=== PATIENT | female | born 1985 | race Hispanic/Latino ===

== ENCOUNTER 2018-01-25 03:35 | Emergency (ER) | payer OTHER, SELFPAY ==
[2018-01-25 04:34] LABS: Absolute Monocytes 0.8 K/uL (0.1-1.3); Absolute Neutrophil 7.7 K/uL (1.8-8.0); Basophils % 0.4 % (0-1.3); Eosinophils % 1.2 % (0-4.4); Hematocrit 39.7 % (36.0-45.0); Lymphocytes % 18.6 % (15.3-44.8); MCH 30.6 pg (27.0-35.0); MCV 90.3 fL (80-100); MPV 9.7 fL (7.6-11.3); Monocytes % 7.2 % (3.3-12.3)
[2018-01-25 04:55] LABS: ALT/SGPT 38 U/L (12-78); AST/SGOT 21 U/L (15-37); Albumin 3.7 g/dL (3.4-5.0); Alkaline Phosphatase 76 U/L (45-117); BUN Blood Urea Nitrogen 10 mg/dL (7-18); Bicarbonate 24 mmol/L (21-32); Bilirubin Direct < 0.1 mg/dL (0-0.2); Bilirubin Total 0.2 mg/dL (0.2-1.0); Glucose Level 99 mg/dL (74-106); Lipase 130 U/L (73-393); Potassium 3.6 mmol/L (3.5-5.1); Protein, Total 7.9 g/dL (6.4-8.2); Sodium Level 138 mmol/L (136-145)
[2018-01-25 07:05] LABS: Urine Blood NEGATIVE (NEG); Urine Glucose NEGATIVE (NEG); Urine Protein NEGATIVE (NEG)
[2018-01-25 07:07] LABS: Urine Bacteria 20-50 /HPF (<20); Urine Culture Reflex Order REFLEXED; Urine RBC <5 /HPF (NONE SEEN)
[2018-01-25 07:08] LABS: Urine Mucus 1+ /HPF (NONE SEEN)
--- NOTE | 2018-01-25 09:35 | EDPHYS ---
Physician Documentation [facility] Name: Opal Tempel Age: 32 yrs Sex: Female : 1985 Arrival Date: 01/25/2018 Time: 03:37 Bed 13 Private MD: ED Physician Tate De La Cruz HPI: 01/25 07:00 This 32 yrs old Female presents to ER via Ambulatory with complaints of 7 pm1 WEEKS PREG CRAMPING. 07:00 The patient presents with abdominal pain in the periumbilical area. Onset: The pm1 symptoms/episode began/occurred this morning, at 02:45. The symptoms radiate to both flanks. Associated signs and symptoms: Pertinent negatives: nausea, vomiting, and diarrhea, chest pain, dysuria, fever, headache, shortness of breath. The symptoms are described as crampy. Modifying factors: The symptoms are alleviated by nothing, the symptoms are aggravated by nothing. Severity of pain: in the emergency department the pain On evaluation patient was not having anymore pain. The patient has not experienced similar symptoms in the past. The patient has not recently seen a physician, has an appointment scheduled, [address] Franz. 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 - Social history:: Smoking status: Patient/guardian denies using tobacco. - Ebola Screening: : No symptoms or risks identified at this time. ROS: 09:45 Constitutional: Negative for fever, chills, and weight loss, Eyes: Negative for injury, pm1 pain, redness, and discharge, ENT: Negative for injury, pain, and discharge, Neck: Negative for injury, pain, and swelling, Cardiovascular: Negative for chest pain, palpitations, and edema, Respiratory: Negative for shortness of breath, cough, wheezing, and pleuritic chest pain. 09:45 Back: Negative for injury and pain, : Negative for injury, bleeding, discharge, and swelling, MS/Extremity: Negative for injury and deformity. 09:45 Skin: Negative for injury, rash, and discoloration, Neuro: Negative for headache, weakness, numbness, tingling, and seizure. 09:45 Abdomen/GI: Positive for abdominal pain, nausea, Negative for nausea, vomiting, diarrhea. Exam: 09:45 Constitutional: This is a well developed, well nourished patient who is awake, alert, pm1 and in no acute distress. Head/Face: Normocephalic, atraumatic. Eyes: Pupils equal round and reactive to light, extra-ocular motions intact. Lids and lashes normal. Conjunctiva and sclera are non-icteric and not injected. Cornea within normal limits. Periorbital areas with no swelling, redness, or edema. ENT: Nares patent. No nasal discharge, no septal abnormalities noted. Tympanic membranes are normal and external auditory canals are clear. Oropharynx with no redness, swelling, or masses, exudates, or evidence of obstruction, uvula midline. Mucous membranes moist. Neck: Trachea midline, no thyromegaly or masses palpated, and no cervical lymphadenopathy. Supple, full range of motion without nuchal rigidity, or vertebral point tenderness. No Meningismus. Chest/axilla: Normal chest wall appearance and motion. Nontender with no deformity. No lesions are appreciated. Cardiovascular: Regular rate and rhythm with a normal S1 and S2. No gallops, murmurs, or rubs. Normal PMI, no JVD. No pulse deficits. Respiratory: Lungs have equal breath sounds bilaterally, clear to auscultation and percussion. No rales, rhonchi or wheezes noted. No increased work of breathing, no retractions or nasal flaring. Abdomen/GI: Soft, non-tender, with normal bowel sounds. No distension or tympany. No guarding or rebound. No evidence of tenderness throughout. Skin: Warm, dry with normal turgor. Normal color with no rashes, no lesions, and no evidence of cellulitis. MS/ Extremity: Pulses equal, no cyanosis. Neurovascular intact. Full, normal range of motion. 09:45 Back: pain, that is mild, of the left low back, ROM is normal, normal spinal alignment noted. 09:45 Neuro: Orientation: is normal, Motor: moves all fours. Vital Signs: 03:49 BP 113 / 75; Pulse 99; Resp 20; Temp 98.4(O); Pulse Ox 96% on R/A; Weight 61.23 kg; tl2 Height 5 ft. 3 in. (160.02 cm); Pain 8/10; 04:50 Pulse 88; Resp 17 S; Pulse Ox 100% on R/A; jd3 07:35 BP 96 / 62; Pulse 88; Resp 16; Pulse Ox 100% on R/A; Pain 0/10; em 09:21 BP 102 / 64; Pulse 87; Resp 16; Pulse Ox 99% on R/A; Pain 0/10; em 03:49 Body Mass Index 23.91 (61.23 kg, 160.02 cm) tl2 MDM: 06:05 Patient medically screened. pm1 09:33 ED course: Ultrasound 6 w 3 days IUP with 140 BPM. pm1 09:34 Data reviewed: vital signs. Data interpreted: Pulse oximetry: on room air is 99 %. pm1 Interpretation: normal. Counseling: I had a detailed discussion with the patient and/or guardian regarding: the historical points, exam findings, and any diagnostic results supporting the discharge/admit diagnosis, lab results, radiology results, the need for outpatient follow up, to return to the emergency department if symptoms worsen or persist or if there are any questions or concerns that arise at home. 01/25 04:04 Order name: Basic Metabolic Panel; Complete Time: 06:05 tl2 01/25 04:04 Order name: CBC with Diff; Complete Time: 06:05 tl2 01/25 04:04 Order name: Creatinine for Radiology; Complete Time: 06:05 tl2 01/25 04:04 Order name: Hepatic Function; Complete Time: 06:05 tl2 01/25 04:04 Order name: Lipase; Complete Time: 06:05 tl2 01/25 06:27 Order name: Urine Microscopic Only; Complete Time: 07:20 pm1 01/25 04:04 Order name: IV Saline Lock; Complete Time: 04:04 tl2 01/25 06:30 Order name: Quantitative Hcg; Complete Time: 08:22 pm1 01/25 06:30 Order name: Abo/rh Typing; Complete Time: 08:22 pm1 01/25 06:38 Order name: US Transvaginal Ob pm1 01/25 06:42 Order name: Urine Dipstick--Ancillary (enter results); Complete Time: 07:20 eb 01/25 07:08 Order name: Urine Culture EDND 01/25 04:04 Order name: Labs collected and sent; Complete Time: 04:04 tl2 01/25 04:04 Order name: Urine Dipstick-Ancillary (obtain specimen); Complete Time: 06:26 tl2 01/25 04:04 Order name: Urine Test (obtain specimen); Complete Time: 06:26 tl2 01/25 06:30 Order name: NPO; Complete Time: 06:32 pm1 Administered Medications: 09:52 Drug: Rocephin 1 grams Route: IV; Rate: calculated rate; Site: left antecubital; aj1 09:58 Follow up: Response: No adverse reaction; IV Status: Completed infusion; IV Intake: 10mlem Disposition: 01/25/18 09:34 Discharged to Home. Impression: Unspecified abdominal pain. - Condition is Stable. - Discharge Instructions: Abdominal Pain During , and Urinary Tract Infection. - Prescriptions for Macrobid 100 mg Oral Capsule - take 1 capsule by ORAL route every 12 hours for 10 days; 20 capsule. promethazine 25 mg Oral Tablet - take 1 tablet by ORAL route every 6 hours As needed; 20 tablet. - Medication Reconciliation Form, Thank You Letter form. - Follow up: Emergency Department; When: As needed; Reason: Worsening of condition. Follow up: Private Physician; When: 2 - 3 days; Reason: Recheck today's complaints, Continuance of care, Re-evaluation by your physician. - Problem is new. - Symptoms have improved. Addendum: 01/27/2018 01:07 Co-signature as Attending Physician, Tate De La Cruz MD. p fabian Signatures: Dispatcher [employer] [facility] Kala Randhawa, RN RN aj1 Tate De La Cruz MD MD pkTevin Duvall, ALGORITHM DEVELOPER ALGORITHM DEVELOPER em Kasi Moore, FUNERAL HOME ATTENDANT FUNERAL HOME ATTENDANT pm1 Shayy Garcia, RN RN tl2 Corrections: (The following items were deleted from the chart) 01/25 07:04 06:42 URINE --ANCILLARY+UC.LAB.BRZ ordered. [facility] EDND 09:59 09:34 01/25/2018 09:34 Discharged to Home. Impression: Unspecified abdominal pain. em Condition is Stable. Forms are Medication Reconciliation Form, Thank You Letter, Antibiotic Education, Prescription Opioid Use. Follow up: Emergency Department; When: As needed; Reason: Worsening of condition. Follow up: Private Physician; When: 2 - 3 days; Reason: Recheck today's complaints, Continuance of care, Re-evaluation by your physician. Problem is new. Symptoms have improved. pm1
--- NOTE | 2018-01-25 09:35 | ER ---
Nurse's Notes [facility] Name: Opal Temple Age: 32 yrs Sex: Female : 1985 Arrival Date: 01/25/2018 Time: 03:37 Bed 13 Private MD: Diagnosis: Unspecified abdominal pain Presentation: 01/25 03:47 Presenting complaint: Patient states: I woke up at 0245 with stomach cramping, reports tl2 pain in epigastric area that radiates to back. Reports nausea. Denies any pelvic cramping or vaginal bleeding. Transition of care: patient was not received from another setting of care. Onset of symptoms was January 25, 2018 at 02:45. Risk Assessment: Do you want to hurt yourself or someone else? Patient reports no desire to harm self or others. Initial Sepsis Screen: Does the patient meet any 2 criteria? No. Patient's initial sepsis screen is negative. Does the patient have a suspected source of infection? No. Patient's initial sepsis screen is negative. Care prior to arrival: None. 03:47 Method Of Arrival: Ambulatory tl2 03:47 Acuity: DEANNA 3 tl2 Triage Assessment: 03:49 General: Appears in no apparent distress. uncomfortable, Behavior is calm, cooperative, tl2 appropriate for age. Pain: Complains of pain in epigastric area Pain radiates to left mid back and right mid back Pain currently is 8 out of 10 on a pain scale. Neuro: Level of Consciousness is awake, alert, obeys commands, Oriented to person, place, time, situation. Cardiovascular: Denies chest pain. Respiratory: Airway is patent Respiratory effort is even, unlabored, Respiratory pattern is regular, symmetrical. GI: Abdomen is non-distended, Reports upper abdominal pain, epigastric pain, nausea. : No signs and/or symptoms were reported regarding the genitourinary system. Denies vaginal bleeding. Derm: Skin is pink, warm \T\ dry. 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 - Social history:: Smoking status: Patient/guardian denies using tobacco. - Ebola Screening: : No symptoms or risks identified at this time. Screenin:51 Abuse screen: Denies threats or abuse. Nutritional screening: No deficits noted. tl2 Tuberculosis screening: No symptoms or risk factors identified. Fall Risk None identified. Assessment: 03:49 General: see triage assessment. tl2 05:00 Reassessment: Patient appears in no apparent distress at this time. Patient and/or tl2 family updated on plan of care and expected duration. Pain level reassessed. Patient is alert, oriented x 3, equal unlabored respirations, skin warm/dry/pink. awaiting 0600 provider. No questions or concerns at this time. 06:20 Reassessment: Patient appears in no apparent distress at this time. Patient and/or tl2 family updated on plan of care and expected duration. Pain level reassessed. Patient is alert, oriented x 3, equal unlabored respirations, skin warm/dry/pink. Pt states pain is decreasing. 07:35 Reassessment: Patient appears in no apparent distress at this time. Patient and/or em family updated on plan of care and expected duration. Pain level reassessed. Patient is alert, oriented x 3, equal unlabored respirations, skin warm/dry/pink. Patient denies pain at this time. Patient states feeling better. 08:00 Reassessment: called ultrasound dept., no answer at this time, will try to call again em later. 08:12 Reassessment: Patient appears in no apparent distress at this time. Patient and/or em family updated on plan of care and expected duration. Pain level reassessed. Patient is alert, oriented x 3, equal unlabored respirations, skin warm/dry/pink. pending ultrasound Patient denies pain at this time. 09:02 Reassessment: Patient appears in no apparent distress at this time. Patient and/or em family updated on plan of care and expected duration. Pain level reassessed. Patient is alert, oriented x 3, equal unlabored respirations, skin warm/dry/pink. called ultrasound dept., no answer at this time, will try to call again later. 09:21 Reassessment: Patient appears in no apparent distress at this time. ultrasound at em bedside. Vital Signs: 03:49 BP 113 / 75; Pulse 99; Resp 20; Temp 98.4(O); Pulse Ox 96% on R/A; Weight 61.23 kg; tl2 Height 5 ft. 3 in. (160.02 cm); Pain 8/10; 04:50 Pulse 88; Resp 17 S; Pulse Ox 100% on R/A; jd3 07:35 BP 96 / 62; Pulse 88; Resp 16; Pulse Ox 100% on R/A; Pain 0/10; em 09:21 BP 102 / 64; Pulse 87; Resp 16; Pulse Ox 99% on R/A; Pain 0/10; em 03:49 Body Mass Index 23.91 (61.23 kg, 160.02 cm) tl2 ED Course: 03:37 Patient arrived in ED. al2 03:47 Shayy Garcia, PARAS is Primary Nurse. tl2 03:48 Triage completed. tl2 03:49 Arm band placed on right wrist. tl2 03:51 Patient has correct armband on for positive identification. Placed in gown. Bed in low tl2 position. Call light in reach. Side rails up X 1. 04:04 Inserted saline lock: 22 gauge in left antecubital area, using aseptic technique. Blood tl2 collected. 06:05 Kasi Moore NP is PHCP. pm1 06:05 Tate De La Cruz MD is Attending Physician. pm1 09:44 US Transvaginal Ob In Process Unspecified. EDMS 09:59 No provider procedures requiring assistance completed. IV discontinued, intact, em bleeding controlled, No redness/swelling at site. Pressure dressing applied. Administered Medications: 09:52 Drug: Rocephin 1 grams Route: IV; Rate: calculated rate; Site: left antecubital; aj1 09:58 Follow up: Response: No adverse reaction; IV Status: Completed infusion; IV Intake: 10mlem Intake: 09:58 IV: 10ml; Total: 10ml. em Outcome: 09:34 Discharge ordered by . pm1 09:59 Discharged to home ambulatory. em 09:59 Condition: good 09:59 Discharge instructions given to patient, Instructed on discharge instructions, follow up and referral plans. medication usage, Demonstrated understanding of instructions, follow-up care, medications, Prescriptions given X 2. 09:59 Patient left the ED. em Signatures: Dispatcher [employer] EDDC Kala Randhawa RN RN aj1 Tevin Munoz, BINGO FLOATER BINGO FLOATER em Kasi Moore, ONCOLOGY SOCIAL WORKER ONCOLOGY SOCIAL WORKER pm1 Shayy Garcia, RN RN tl2 Mic Apodaca, RN RN jd3 Lety Arias
[2018-01-25] MEDS ORDERED: CEFTRIAXONE/SWI 1gm 1 GM/10 ML SYR ONE (09:46)
--- NOTE | 2018-01-25 10:47 | RAD REPORT ---
EXAM DESCRIPTION: US - Transvaginal OB - 01/25/2018 9:43 am CLINICAL HISTORY: ABD CRAMPING, COMPARISON: No comparisons FINDINGS: A single gestational sac is seen within the uterus. The shape of the sac is within normal limits for gestational age. Within the sac is a single pole with crown-rump length of 7 mm, cor relating to estimated gestational age of 6 weeks 4 days. Estimated date of delivery is 09/17/2018. Heart rate is 140 BPM. The placenta is not yet developed due to early gestational age. The maternal adnexa and right ovary are within normal limits. Normal Doppler blood flow was demonstra jennifer to the right ovary. The left ovary was obscured by bowel gas. IMPRESSION: Single live early intrauterine gestation with estimated gestational age of 6 weeks 4 day s, FER 09/17/2018. No unusual or unexpected finding.
== END 2018-01-25 09:59 | disposition home or self-care (01) ==
LOC: ER 03:35
DX: O26.891 Other specified pregnancy related conditions, first trimester (principal)
CPT/HCPCS: 36415; 76817; 80048; 80076; 81003; 81015; 83690; 84702; 85025; 86900; 86901; 87086; 87088; 96374; 99284; J0696

== ENCOUNTER 2018-09-01 10:37 | Inpatient (IN) | payer MEDICAID ==
[2018-09-01] MEDS ORDERED: CARBOPROST TROME 250 MCG/ML IM PRN (11:05)
[2018-09-01] MEDS ORDERED: BUTORPHANOL 1 MG/ML INJ IV PRN (11:05)
[2018-09-01] MEDS ORDERED: Ringers Lactate 1,000 ML IV PRN (11:05)
[2018-09-01] MEDS ORDERED: METHYLERGONOVINE 0.2MG/ML AMP IM PRN (11:05)
[2018-09-01] MEDS ORDERED: PROMETHAZINE 25 MG/ML VIAL IV PRN ×2 (11:05)
[2018-09-01 11:33] VITALS: BMI 3929.6
[2018-09-01 11:58] LABS: RPR Titer ND
[2018-09-01] MEDS ORDERED: Ringers Lactate 1,000 ML IV SCH (12:00)
[2018-09-01] MEDS ORDERED: OXYTOCIN/LR 20 UNIT/1,000 ML BAG IV SCH (12:00)
[2018-09-01 12:07] LABS: Absolute Lymphocytes (CBC) 2.3 K/uL (0.7-4.9); Absolute Monocytes 0.9 K/uL (0.1-1.3); Absolute Neutrophil 7.3 K/uL (1.8-8.0); Basophils % 0.4 % (0-1.3); Eosinophils % 0.4 % (0-4.4); Hematocrit 27.8 % (36.0-45.0); Lymphocytes % 21.4 % (15.3-44.8); MPV 8.6 fL (7.6-11.3); Monocytes % 8.1 % (3.3-12.3); RBC Red Blood Cell Count 3.87 M/uL (3.86-4.86)
[2018-09-01 12:25] LABS: Urine Appearance CLOUDY; Urine Color DK YELLOW; Urine Glucose TRACE (NEG); Urine Specific Gravity >=1.030 (1.005-1.030)
[2018-09-01 12:26] LABS: Urine Blood 2+ (NEG); Urine Protein 1+ (NEG)
[2018-09-01 12:45] LABS: Urine Microscopic Reflex ORDER UMIC
[2018-09-01 12:47] LABS: Urine Bilirubin POSITIVE (NEG)
[2018-09-01 12:50] LABS: Urine Bacteria 20-50 /HPF (<20); Urine Culture Reflex Order REFLEXED
[2018-09-01] MEDS ORDERED: FENTANYL CITR 100 MCG/2 ML IV ONE (13:09)
[2018-09-01] MEDS ORDERED: ROPIVACAINE HCL 100 ML IV PRN (13:10)
[2018-09-01] MEDS ORDERED: ROPIVACAINE HCL 20 ML ONE (15:18)
[2018-09-01] MEDS ORDERED: METHYLERGONOVINE 0.2 MG TAB PO PRN (15:29)
[2018-09-01] MEDS ORDERED: DOCUSATE NA/SENNA CONC 1 TAB PO PRN (15:29)
[2018-09-01] MEDS ORDERED: ACETAMINOPHEN 500 MG TAB PO PRN (15:29)
[2018-09-01] MEDS ORDERED: BISACODYL 10 MG RECTAL SUPP RECT PRN (15:29)
[2018-09-01] MEDS ORDERED: ONDANSETRON 4 MG (ODT) TAB PO PRN (15:29)
[2018-09-01] MEDS ORDERED: IBUPROFEN 200 MG TAB PO PRN (15:29)
[2018-09-01] MEDS ORDERED: DOCUSATE NA 100 MG CAP PO PRN (15:31)
--- NOTE | 2018-09-01 18:05 | P.OP ---
Date of Service: 09/01/18 Findings and Operative Technique Patient delivered a viable female in cephalic presentation on 09/01/18 at 15:17. Once was delivered the nose and mouth were suctioned with a suction bulb and cord was clamped and cut. was placed on mother's abdomen for skin to skin bonding. Attention was then turned to the umbilcal cord and cord blood was obtained. Placenta was then delivered with gentle traction at 15:18. Perineum was then inspected and noted to have a 1st degree laceration at the introitus. This was then repaired with a 2.0 vicryl in usual fashion. Fundus was massaged and found to be firm. EBL was 300cc. Patient is bonding well with the baby and is going to breast feed. Pain is well managed. Patient was anemic prior to delivery. vitamins and iron will be started. Patient will be placed on a regular diet.
[2018-09-01] MEDS: Oxycodone HCl/Acetaminophen 1 TAB TAB PO PRN (19:40)
[2018-09-01] MEDS: FERROUS SULFATE 325 MG TAB PO SCH (23:45)
[2018-09-01 23:47] LABS: RPR (Rapid Plasma Reagin) NON-REACT (NON-REACT)
[2018-09-02 04:58] LABS: Absolute Lymphocytes (CBC) 2.4 K/uL (0.7-4.9); Absolute Neutrophil 8.6 K/uL (1.8-8.0); Basophils % 0.6 % (0-1.3); Eosinophils % 0.5 % (0-4.4); Hematocrit 24.7 % (36.0-45.0); Lymphocytes % 19.7 % (15.3-44.8); MPV 8.3 fL (7.6-11.3); Monocytes % 8.1 % (3.3-12.3); RBC Red Blood Cell Count 3.42 M/uL (3.86-4.86)
[2018-09-02] MEDS: Oxycodone HCl/Acetaminophen 1 TAB TAB PO PRN ×3 (05:25→15:13)
[2018-09-02] MEDS ORDERED: PRENATAL VITAMIN PO SCH (09:00)
[2018-09-02] MEDS: FERROUS SULFATE 325 MG TAB PO SCH (09:00)
[2018-09-02 11:14] VITALS: TEMP 97.6
[2018-09-02 17:13] VITALS: BP 111/69
[2018-09-03 19:11] LABS: HBsAG Nonreactive (Nonreactive)
== END 2018-09-02 17:45 | disposition home or self-care (01) | DRG 807 ==
LOC: 2ND-WC 10:37
PROVIDERS: ADMIT Student in an Organized Health Care Education/Training Program; ATTEND Student in an Organized Health Care Education/Training Program
PROC: 10E0XZZ Delivery of Products of Conception, External Approach (ICD-10-PCS; principal; 2018-09-01)
PROC: 0HQ9XZZ Repair Perineum Skin, External Approach (ICD-10-PCS; 2018-09-01)
DX: O70.0 First degree perineal laceration during delivery (principal); Z37.0 Single live birth; Z3A.38 38 weeks gestation of pregnancy
CPT/HCPCS: 36415; 81003; 81015; 85025; 86592; 86901; 87086; 87088; 87340; J2210; J2590; J2795; J3010

== ENCOUNTER 2021-12-28 14:12 | Inpatient (IN) | payer SELFPAY ==
--- NOTE | 2021-12-28 15:20 | RAD REPORT ---
EXAM DESCRIPTION: US - Abdomen Exam Limited - 12/28/2021 3:04 pm CLINICAL HISTORY: Abdominal pain. vomiting COMPARISON: None. FINDINGS: Gallbladder is filled with sludge. Gallstones are present. The gallbladder wall is mildly thickened The biliary tree is normal caliber. IMPRESSION: Cholelithiasis with marked gallbladder sludge Mild gallbladder wall thickening may indicate cholecystitis
[2021-12-28 16:18] LABS: SARS-CoV-2 Antigen Rapid Res Negative (Negative)
[2021-12-28 16:33] LABS: Hematocrit 42.2 % (36.0-45.0); Lymphocytes % 27.3 % (15.3-44.8); MCV 88.2 fL (80-100); MPV 8.4 fL (7.6-11.3); RBC Red Blood Cell Count 4.78 M/uL (3.86-4.86)
[2021-12-28] MEDS ORDERED: NA CHLORIDE 0.9% 1,000 ML ONE (16:39)
[2021-12-28] MEDS ORDERED: ONDANSETRON 4 MG/2 ML VIAL ONE (16:39)
[2021-12-28] MEDS ORDERED: FAMOTIDINE 20 MG/2 ML VIAL IV ONE (16:39)
[2021-12-28 16:51] LABS: Albumin 3.8 g/dL (3.4-5.0); Bilirubin Total 0.4 mg/dL (0.2-1.0); Potassium 3.6 mmol/L (3.5-5.1); Protein, Total 8.3 g/dL (6.4-8.2)
--- NOTE | 2021-12-28 17:31 | ER ---
Nurse's Notes [facility] Name: Opal Hsu Age: 36 yrs Sex: Female : 1985 Arrival Date: 12/28/2021 Time: 14:15 Bed 20 Private MD: Diagnosis: Acute cholecystitis Presentation: 12/28 14:38 Chief complaint: Patient states: I think I am having gallbladder issues all week. I bm7 have sludge and stones in my gallbladder. Coronavirus screen: At this time, the client does not indicate any symptoms associated with coronavirus-19. Ebola Screen: No symptoms or risks identified at this time. Initial Sepsis Screen: Does the patient meet any 2 criteria? No. Patient's initial sepsis screen is negative. Does the patient have a suspected source of infection? No. Patient's initial sepsis screen is negative. Risk Assessment: Do you want to hurt yourself or someone else? Patient reports no desire to harm self or others. Onset of symptoms is unknown. 14:38 Method Of Arrival: Ambulatory 7 14:38 Acuity: DEANNA 3 bm7 Triage Assessment: 14:39 General: Appears in no apparent distress. uncomfortable, Behavior is calm, cooperative, bm7 appropriate for age. Pain: Complains of pain in abdomen Pain does not radiate. EENT: No deficits noted. No signs and/or symptoms were reported regarding the EENT system. Neuro: No deficits noted. Cardiovascular: No deficits noted. Respiratory: No deficits noted. GI: Abdomen is flat, non-distended, Bowel sounds present X 4 quads. Abd is soft X 4 quads Abdomen is tender to palpation in abdomen diffusely Reports lower abdominal pain, upper abdominal pain, intolerance of fluids, intolerance of food. : No deficits noted. No signs and/or symptoms were reported regarding the genitourinary system. Derm: No deficits noted. No signs and/or symptoms reported regarding the dermatologic system. Musculoskeletal: No deficits noted. No signs and/or symptoms reported regarding the musculoskeletal system. 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 - Social history:: Smoking status: Patient denies any tobacco usage or history of. Screenin:00 Abuse screen: Denies threats or abuse. Nutritional screening: No deficits noted. aa5 Tuberculosis screening: No symptoms or risk factors identified. Fall Risk None identified. Assessment: 16:00 General: Appears comfortable, Behavior is calm, cooperative. Pain: Complains of pain in aa5 right upper quadrant Pain radiates to back Pain currently is 3 out of 10 on a pain scale. Quality of pain is described as sharp, Pain began weeks ago Is intermittent. Neuro: Level of Consciousness is awake, alert, obeys commands, Oriented to person, place, time, situation. Cardiovascular: Heart tones S1 S2 present Rhythm is regular. Respiratory: Airway is patent Respiratory effort is even, unlabored, Respiratory pattern is regular, symmetrical. GI: Abdomen is flat, non-distended, Bowel sounds present X 4 quads. Abdomen is tender to palpation in right upper quadrant Reports nausea. : No signs and/or symptoms were reported regarding the genitourinary system. EENT: No signs and/or symptoms were reported regarding the EENT system. Derm: Skin is pink, warm \T\ dry. Musculoskeletal: Range of motion: intact in all extremities. 16:20 Reassessment: Patient is alert, oriented x 3, equal unlabored respirations, skin aa5 warm/dry/pink. Patient denies pain at this time. 17:15 Reassessment: Patient is alert, oriented x 3, equal unlabored respirations, skin aa5 warm/dry/pink. Pt reports pain has increased. 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 . Pain: Pain currently is 7 out of 10 on a pain scale. 17:42 Reassessment: Patient states feeling better. Patient states symptoms have improved. Pt aa5 sleepy, easy to awaken to verbal stimuli. . Pain: Pain currently is 0 out of 10 on a pain scale. 18:50 Reassessment: Patient is alert, oriented x 3, equal unlabored respirations, skin aa5 warm/dry/pink. Patient denies pain at this time. Pt ambulatory to restroom . Vital Signs: 14:38 BP 132 / 93; Pulse 112; Resp 18; Temp 97.7(TE); Pulse Ox 100% on R/A; Weight 54.43 kg bm7 (R); Height 5 ft. 4 in. (162.56 cm); Pain 6/10; 16:00 BP 118 / 80; Pulse 80; Resp 16 S; Pulse Ox 99% on R/A; aa5 17:00 BP 110 / 73; Pulse 82; Resp 16 S; Pulse Ox 100% on R/A; aa5 18:30 BP 112 / 73; Pulse 87; Resp 14 S; Temp 98.1(O); Pulse Ox 100% on R/A; aa5 14:38 Body Mass Index 20.60 (54.43 kg, 162.56 cm) bm7 ED Course: 14:15 Patient arrived in ED. rg4 14:34 Chay Bangura is PHCP. jl9 14:34 Vj Lugo MD is Attending Physician. jl9 14:37 PHCP role handed off by Chay Bangura snw 14:37 Sherrill Rg FNP-C is PHCP. snw 14:39 Triage completed. bm7 14:39 Arm band placed on right wrist. bm7 15:06 Abdomen Limited US In Process Unspecified. EDMS 15:57 Cheli Burgos, RN is Primary Nurse. aa5 16:00 Patient has correct armband on for positive identification. Bed in low position. Call aa5 light in reach. Side rails up X 1. 16:01 COVID swab sent to lab. tm3 16:10 Initial lab(s) drawn, by il, sent to lab. Inserted saline lock: 22 gauge in left aa5 antecubital area, using aseptic technique. Blood collected. 17:29 Sav Allison MD is Hospitalizing Provider. snw 18:37 No provider procedures requiring assistance completed. Patient admitted, IV remains in aa5 place. Administered Medications: 16:20 Drug: NS 0.9% 1000 ml Route: IV; Rate: 1 bolus; Site: left antecubital; aa5 17:00 Follow up: IV Status: Completed infusion; IV Intake: 1000ml aa5 16:20 Drug: Pepcid (famotidine) 20 mg Route: IVP; Site: left antecubital; aa5 16:30 Follow up: Response: No adverse reaction aa5 16:20 Drug: Zofran (Ondansetron) 4 mg Route: IVP; Site: left antecubital; aa5 16:30 Follow up: Response: No adverse reaction aa5 17:33 Drug: Demerol (meperidine) 12.5 mg Route: IVP; Site: left antecubital; aa5 17:42 Follow up: Response: No adverse reaction aa5 17:33 Drug: Phenergan (promethazine) 25 mg Route: IM; Site: right deltoid; aa5 17:42 Follow up: Response: No adverse reaction aa5 17:42 Drug: Zosyn (piperacillin-tazobactam) 3.375 grams Route: IVPB; Infused Over: 60 mins; aa5 Site: left antecubital; 18:42 Follow up: Response: No adverse reaction; IV Status: Completed infusion aa5 Medication: 18:37 VIS not applicable for this client. aa5 Intake: 17:00 IV: 1000ml; Total: 1000ml. aa5 Outcome: 17:30 Decision to Hospitalize by Provider. snw 18:37 Admitted to Med/surg accompanied by tech, room 278, Report called to Shaylee RN. Also jh6 requesting to bring pt up after shift change due to time that report was called. 18:38 Condition: stable [facility] 18:38 Instructed on the need for admit. 19:04 Patient left the ED. aa5 Signatures: Dispatcher [employer] EDMS Liza Wilfred tm3 Sherrill Rg, GASOLINE ENGINE INSPECTOR-C GASOLINE ENGINE INSPECTOR-Csnw Cheli Burgos, RN RN aa5 Mariann Dupree4 Fang Sharma, PARAS RN omar7 Tawnya Hebert RN RN jh6 Chay Bangura9
--- NOTE | 2021-12-28 17:31 | EDPHYS ---
Physician Documentation [facility] Name: Opal Hsu Age: 36 yrs Sex: Female : 1985 Arrival Date: 12/28/2021 Time: 14:15 Bed 20 Private MD: RONAN Physician Vj Lugo HPI: 12/28 14:39 This 36 yrs old Female presents to ER via Unassigned with complaints of snw Abdominal Pain. 14:39 The patient presents with abdominal pain abdominal distention in the epigastric area, snw in the upper abdomen. Onset: The symptoms/episode began/occurred gradually, 2 month(s) ago, and became persistent 1 weeks ago. The symptoms do not radiate. Associated signs and symptoms: Pertinent positives: nausea and vomiting, anorexia. The symptoms are described as constant. Severity of pain: At its worst the pain was moderate. The patient has experienced a previous episode. The patient has not recently seen a physician, did see Dr. Allison in September. 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 - Social history:: Smoking status: Patient denies any tobacco usage or history of. ROS: 14:38 Constitutional: Negative for fever, chills, and weight loss, Eyes: Negative for injury, snw pain, redness, and discharge, ENT: Negative for injury, pain, and discharge, Neck: Negative for injury, pain, and swelling, Cardiovascular: Negative for chest pain, palpitations, and edema, Respiratory: Negative for shortness of breath, cough, wheezing, and pleuritic chest pain, Back: Negative for injury and pain, : Negative for injury, bleeding, discharge, and swelling, MS/Extremity: Negative for injury and deformity, Skin: Negative for injury, rash, and discoloration, Neuro: Negative for headache, weakness, numbness, tingling, and seizure, Psych: Negative for depression, anxiety, suicide ideation, homicidal ideation, and hallucinations. 14:38 Abdomen/GI: Positive for abdominal pain, nausea and vomiting, abdominal cramps, abdominal distension, of the umbilical area, right upper quadrant and right lower quadrant. Exam: 14:51 Constitutional: This is a well developed, well nourished patient who is awake, alert, snw and in no acute distress. Head/Face: Normocephalic, atraumatic. Eyes: Pupils equal round and reactive to light, extra-ocular motions intact. Lids and lashes normal. Conjunctiva and sclera are non-icteric and not injected. Cornea within normal limits. Periorbital areas with no swelling, redness, or edema. ENT: Nares patent. No nasal discharge, no septal abnormalities noted. Tympanic membranes are normal and external auditory canals are clear. Oropharynx with no redness, swelling, or masses, exudates, or evidence of obstruction, uvula midline. Mucous membranes moist. Neck: Trachea midline, no thyromegaly or masses palpated, and no cervical lymphadenopathy. Supple, full range of motion without nuchal rigidity, or vertebral point tenderness. No Meningismus. Chest/axilla: Normal chest wall appearance and motion. Nontender with no deformity. No lesions are appreciated. Cardiovascular: Regular rate and rhythm with a normal S1 and S2. No gallops, murmurs, or rubs. Normal PMI, no JVD. No pulse deficits. Respiratory: Lungs have equal breath sounds bilaterally, clear to auscultation and percussion. No rales, rhonchi or wheezes noted. No increased work of breathing, no retractions or nasal flaring. Back: No spinal tenderness. No costovertebral tenderness. Full range of motion. Skin: Warm, dry with normal turgor. Normal color with no rashes, no lesions, and no evidence of cellulitis. MS/ Extremity: Pulses equal, no cyanosis. Neurovascular intact. Full, normal range of motion. Neuro: Awake and alert, GCS 15, oriented to person, place, time, and situation. Cranial nerves II-XII grossly intact. Motor strength 5/5 in all extremities. Sensory grossly intact. Cerebellar exam normal. Normal gait. Psych: Awake, alert, with orientation to person, place and time. Behavior, mood, and affect are within normal limits. 14:51 Abdomen/GI: Inspection: abdomen appears normal, Bowel sounds: diminished, Palpation: moderate abdominal tenderness, in all quadrants, severe abdominal tenderness, in the right upper quadrant, Indicators: Macias's sign is positive. Vital Signs: 14:38 BP 132 / 93; Pulse 112; Resp 18; Temp 97.7(TE); Pulse Ox 100% on R/A; Weight 54.43 kg bm7 (R); Height 5 ft. 4 in. (162.56 cm); Pain 6/10; 16:00 BP 118 / 80; Pulse 80; Resp 16 S; Pulse Ox 99% on R/A; aa5 17:00 BP 110 / 73; Pulse 82; Resp 16 S; Pulse Ox 100% on R/A; aa5 18:30 BP 112 / 73; Pulse 87; Resp 14 S; Temp 98.1(O); Pulse Ox 100% on R/A; aa5 14:38 Body Mass Index 20.60 (54.43 kg, 162.56 cm) bm7 MDM: 14:45 Patient medically screened. snw 17:27 Data reviewed: vital signs, nurses notes. Data interpreted: Pulse oximetry: on room air snw is 100 %. Interpretation: normal. Counseling: I had a detailed discussion with the patient and/or guardian regarding: the historical points, exam findings, and any diagnostic results supporting the discharge/admit diagnosis, the presence of at least one elevated blood pressure reading (>120/80) during this emergency department visit, lab results, radiology results. Physician consultation: Sav Allison MD was called at 17:28, was contacted at 17:28, regarding admission, consult, patient's condition, would like medications started, antibiotics, pain and nausea management, clear liquids tonight, NPO p MN. Help during OR with Camera. Schedule to follow his other two cases. 12/28 14:38 Order name: CBC with Diff; Complete Time: 16:36 snw 12/28 14:38 Order name: CMP; Complete Time: 17:25 snw 12/28 14:38 Order name: Lipase; Complete Time: 17:25 snw 12/28 14:38 Order name: Abdomen Limited US; Complete Time: 15:28 snw 12/28 14:52 Order name: SARS RAPID; Complete Time: 16:19 snw 12/28 14:38 Order name: IV Saline Lock; Complete Time: 16:27 snw 12/28 17:26 Order name: Diet Npo: post MN; Complete Time: 17:26 snw 12/28 17:26 Order name: Diet Clear Liquid; Complete Time: 17:26 snw 12/28 14:38 Order name: Labs collected and sent; Complete Time: 16:27 snw Administered Medications: 16:20 Drug: NS 0.9% 1000 ml Route: IV; Rate: 1 bolus; Site: left antecubital; aa5 17:00 Follow up: IV Status: Completed infusion; IV Intake: 1000ml aa5 16:20 Drug: Pepcid (famotidine) 20 mg Route: IVP; Site: left antecubital; aa5 16:30 Follow up: Response: No adverse reaction aa5 16:20 Drug: Zofran (Ondansetron) 4 mg Route: IVP; Site: left antecubital; aa5 16:30 Follow up: Response: No adverse reaction aa5 17:33 Drug: Demerol (meperidine) 12.5 mg Route: IVP; Site: left antecubital; aa5 17:42 Follow up: Response: No adverse reaction aa5 17:33 Drug: Phenergan (promethazine) 25 mg Route: IM; Site: right deltoid; aa5 17:42 Follow up: Response: No adverse reaction aa5 17:42 Drug: Zosyn (piperacillin-tazobactam) 3.375 grams Route: IVPB; Infused Over: 60 mins; aa5 Site: left antecubital; 18:42 Follow up: Response: No adverse reaction; IV Status: Completed infusion aa5 Disposition Summary: 12/28/21 17:30 Hospitalization Ordered Hospitalization Status: Inpatient Admission snw Provider: Sav Allison snriccardo Condition: Stable snw Problem: an acute exacerbation snw Symptoms: have worsened snw Bed/Room Type: Standard snw Location: [facility](12/28/21 18:23) Room Assignment: [facility](12/28/21 18:23) Diagnosis - Acute cholecystitis snw Forms: - Medication Reconciliation Form snw - SBAR form snw Signatures: Dispatcher [employer] Samantha Foster RN RN Sherrill Montgomery FNP-C FNP-Csnw Cheli Burgos, RN RN aa5 Fang Sharma, RN RN bm7 Corrections: (The following items were deleted from the chart) 17:30 Telemetry/MedSurg (Inpatient) [facility] 17:30 [facility]
[2021-12-28] MEDS ORDERED: MEPERIDINE HCL 25 MG/ML SYR ONE (17:33)
[2021-12-28] MEDS ORDERED: PROMETHAZINE INJ 25 MG/ML AMP ONE (17:33)
[2021-12-28] MEDS ORDERED: PIPERACIL/TAZO 3.375 GM VIAL IV ONE (17:47)
[2021-12-28] MEDS ORDERED: NA CHLORIDE 0.9% 100 ML ONE (17:47)
[2021-12-28] MEDS ORDERED: ONDANSETRON 4 MG/2 ML VIAL IV PRN (19:22)
[2021-12-28] MEDS ORDERED: ACETAMINOPHEN 500 MG TAB PO PRN (19:22)
[2021-12-28] MEDS ORDERED: MORPHINE 4 MG/ML SYR IV PRN (19:22)
[2021-12-28] MEDS: D5 0.45 NS 1,000 ML IV SCH (19:29)
[2021-12-28] MEDS ORDERED: D5 0.45 NS 1,000 ML IV ONE (19:36)
[2021-12-28] MEDS: CEFOXITIN 1 GM in NA CHLORIDE 0.9% 50 ML IVPB SCH (19:44)
[2021-12-28 20:42] VITALS: BMI 20.5
[2021-12-29] MEDS: CEFOXITIN 1 GM in NA CHLORIDE 0.9% 50 ML IVPB SCH (01:57)
[2021-12-29] MEDS: D5 0.45 NS 1,000 ML IV SCH ×3 (03:57→19:22)
[2021-12-29 06:11] LABS: Absolute Lymphocytes (CBC) 2.1 K/uL (0.7-4.9); Hematocrit 32.6 % (36.0-45.0); Lymphocytes % 28.7 % (15.3-44.8); MCV 87.6 fL (80-100); MPV 8.9 fL (7.6-11.3); RBC Red Blood Cell Count 3.73 M/uL (3.86-4.86)
[2021-12-29 06:20] LABS: Albumin 2.9 g/dL (3.4-5.0); Bilirubin Direct 0.1 mg/dL (0-0.2); Bilirubin Total 0.4 mg/dL (0.2-1.0); Potassium 4.2 mmol/L (3.5-5.1); Protein, Total 6.5 g/dL (6.4-8.2)
[2021-12-29] MEDS: CEFOXITIN 1 GM in NA CHLORIDE 0.9% 100 ML IVPB SCH ×4 (08:34→20:43)
--- NOTE | 2021-12-29 09:30 | P.HP ---
Date of Service: 12/29/21 Chief complaint: Abdominal pain History of present Illness: Patient is a 36-year-old female who I saw in the office in September with biliary colic. Work-up at that time revealed chronic cholecystitis and cholelithiasis. Patient was considering having surgery but had family emergency and put surgery on hold. She is since then had a couple episode of biliary colic. The most recent episode started about a week ago. Patient had epigastric pain radiating to the right upper quadrant and to the back associated with nausea, vomiting, bloating and belching. No diarrhea, constipation, blood per rectum, dysuria, hematuria, chest pain, fever or chills. Pain is postprandial in nature. Review of systems: Otherwise unremarkable Past medical history: Negative Past surgical history: Negative Allergies: None Social history: Patient does not smoke or drink alcohol Family history: Diabetes and hypertension Vital signs: Stable, afebrile Physical exam: Awake alert oriented x3 Head and neck: Cranial nerves II through XII grossly within normal limits, no neck masses, no JVD, throat clear, neck supple and no evidence of icterus. Chest: Clear Heart: S1-S2 Abdomen soft, nondistended, positive bowel sounds, right upper quadrant tenderness with rebound. No evidence of peritonitis. Extremity: Nontender and neurovascular intact Neuro: Nonfocal Diagnostic data: White count 7.1 hemoglobin was 14.0 now is 11.2 LFTs are within normal limit. Ultrasound of the abdomen shows sludge and gallstones with thickened gallbladder wall. Assessment: Acute cholecystitis and cholelithiasis Plan/recommendation: Admit, n.p.o., IV fluid, IV antibiotics and to the OR for laparoscopic cholecystectomy possible open. Patient understands risks, benefits and alternatives and agrees to procedure. CC:
[2021-12-29] MEDS: Ringers Lactate 1,000 ML IV ONE ×2 (14:00→15:00)
[2021-12-29] MEDS ORDERED: ROCURONIUM 50 MG/5 ML VIAL IV ONE (14:01)
[2021-12-29] MEDS ORDERED: LIDOCAINE 1% MPF 5 ML VIAL ONE (14:01)
[2021-12-29] MEDS ORDERED: FENTANYL CITR 100 MCG/2 ML ONE ×2 (14:01→14:47)
[2021-12-29] MEDS ORDERED: propofoL 200 MG/20 ML VIAL IV ONE (14:01)
[2021-12-29] MEDS ORDERED: CEFOXITIN SODIUM 1 GM/VIAL ONE (14:10)
[2021-12-29] MEDS ORDERED: KETOROLAC 30 MG/ML INJ ONE (14:31)
[2021-12-29] MEDS ORDERED: dexAMETHasone 10 MG/ML VIAL ONE (14:31)
[2021-12-29] MEDS ORDERED: ONDANSETRON 4 MG/2 ML VIAL ONE ×2 (14:31→15:40)
[2021-12-29] MEDS ORDERED: GLYCOPYRROLATE 0.2 MG/ML SYR ONE (14:52)
[2021-12-29] MEDS ORDERED: NEOSTIGMINE 1 MG/ML -10 ML VIAL ONE (14:53)
--- NOTE | 2021-12-29 15:04 | P.OP ---
Date of Service: 12/29/21 Preop diagnosis: Acute cholecystitis and cholelithiasis Postop diagnosis: Same Procedure performed: Laparoscopic cholecystectomy Surgeon: Sav Allison MD Leasing Professional: Geneva MCKINNEY Estimated blood loss: Minimal Specimen: Gallbladder Findings: As above Anesthesia: General Complications: None Drains: None Fluids and blood products: Nonapplicable Disposition: Recovery room Operative note: Patient brought to the OR and placed in the supine position. General anesthesia begun. Patient prepped and draped in the usual sterile fashion. Marcaine 0.5% infiltrated locally. 15 blade used to make a 1 cm infraumbilical midline incision. Subcutaneous tissue divided. Fascia identified and divided. #1 Vicryl stay suture placed. Peritoneal cavity entered with sharp and blunt dissection. 12 mm trocar placed into the peritoneal cavity under direct vision. Pneumoperitoneum established. 3 5 mm trochars placed. 1 trocar placed in the epigastric region just to the right of midline. 2 trochars placed in the right subcostal region. Laparoscopy revealed a distended gallbladder. This was aspirated of thick bile. Then fundus was retracted superiorly. The infundibulum was identified with sharp and blunt dissection and retracted inferolaterally. Cystic duct and cystic artery clearly identified with blunt dissection. Clips today placed and both structures divided. Cautery used to remove the gallbladder from the liver bed. Bleeding on the liver bed controlled with cautery. Gallbladder retrieved through the u mbilicus via Endo Catch bag. Right upper quadrant irrigated. Effluent was clear. No evidence of bleeding or bile leakage appreciated. All trochars removed under direct vision. Stay sutures tied to each other to reapproximate the fascial defect. Subcutaneous wounds irrigated and bleeding controlled with cautery. 3-0 chromic used approximate subcutaneous tissue and close skin. Sterile dressing applied. Patient awakened and taken to recovery room in good general condition. CC:
[2021-12-29] MEDS ORDERED: Mastisol Adhesive Liq ONE (15:14)
[2021-12-29] MEDS ORDERED: HYDROMORPHONE HCL 1 MG/ML INJ IV PRN (15:17)
[2021-12-29] MEDS ORDERED: PROMETHAZINE INJ 25 MG/ML AMP ONE (15:47)
[2021-12-29] MEDS ORDERED: MEPERIDINE HCL 25 MG/ML SYR ONE (15:56)
[2021-12-29 17:15] VITALS: O2SAT 96
[2021-12-29] MEDS: HYDROCODONE/APAP 7.5/325 MG TAB PO PRN (19:04)
[2021-12-30] MEDS: CEFOXITIN 1 GM in NA CHLORIDE 0.9% 100 ML IVPB SCH ×2 (03:19→08:45)
[2021-12-30] MEDS: D5 0.45 NS 1,000 ML IV SCH (04:12)
[2021-12-30 06:34] LABS: Absolute Lymphocytes (CBC) 0.9 K/uL (0.7-4.9); Hematocrit 34.8 % (36.0-45.0); Lymphocytes % 8.7 % (15.3-44.8); MCV 87.8 fL (80-100); MPV 9.4 fL (7.6-11.3); RBC Red Blood Cell Count 3.96 M/uL (3.86-4.86)
[2021-12-30 09:21] VITALS: BP 109/64; TEMP 98.4
[2021-12-30] MEDS: HYDROCODONE/APAP 7.5/325 MG TAB PO PRN (09:27)
--- NOTE | 2021-12-30 10:01 | P.DS ---
Admission Date: 12/28/21 Discharge Date: 12/30/21 Disposition: ROUTINE DISCHARGE Discharge Condition: GOOD Brief History of Present Illness: Patient is a 36-year-old female who came in with abdominal pain. Work-up revealed a patient to have acute cholecystitis and cholelithiasis. Hospital Course: Patient was admitted on Friday. Patient was started on IV antibiotics. Patient was taken to the OR Friday. Patient underwent a laparoscopic cholecystectomy. Postoperatively patient was tolerating diet, ambulating, pain controlled on p.o. pain medication and afebrile. Therefore patient was discharged to home. Disposition: Home Condition: Stable Resume home meds and diet Activity as tolerated no heavy lifting Vital Signs/Physical Exam: Temp Pulse Resp BP Pulse Ox 98.4 F 87 18 109/64 100 12/30/21 08:00 12/30/21 08:00 12/30/21 09:27 12/30/21 08:00 12/30/21 09:27 Laboratory Data at Discharge: WBC 10.10 K/uL (4.3-10.9) D 12/30/21 05:40 Hgb 11.9 g/dL (12.0-15.0) L 12/30/21 05:40 Hct 34.8 % (36.0-45.0) L 12/30/21 05:40 Plt Count 302 K/uL (152-406) 12/30/21 05:40 Sodium 140 mmol/L (136-145) 12/29/21 05:35 Potassium 4.2 mmol/L (3.5-5.1) 12/29/21 05:35 BUN 7 mg/dL (7-18) 12/29/21 05:35 Creatinine 0.72 mg/dL (0.55-1.3) 12/29/21 05:35 Glucose 108 mg/dL (74-106) H 12/29/21 05:35 Total Bilirubin 0.4 mg/dL (0.2-1.0) 12/29/21 05:35 AST 9 U/L (15-37) L 12/29/21 05:35 ALT 25 U/L (12-78) 12/29/21 05:35 Alkaline Phosphatase 70 U/L (45-117) 12/29/21 05:35 Lipase 72 U/L (73-393) L 12/28/21 16:25 Home Medications: NK [No Home Meds] 09/01/18 Physician Discharge Instructions: Remove outer dressing and may shower Keep Steri-Strips on at all times Incentive spirometry as ordered Tylenol or ibuprofen for pain as needed Diet: Regular Activity: No lifting more than 10 lbs Followup: NONE,NONE [Primary Care Provider] - Sav Allison MD [ACTIVE - CAN ADMIT] - 1 Week
== END 2021-12-30 11:15 | disposition home or self-care (01) | DRG 419 ==
LOC: ER 14:12 → ERHOLD 17:32 → 2ND-WC 18:39
PROVIDERS: ADMIT Surgery; ATTEND Surgery
PROC: 0FT44ZZ Resection of Gallbladder, Percutaneous Endoscopic Approach (ICD-10-PCS; principal; 2021-12-29 11:30)
DX: K80.00 Calculus of gallbladder with acute cholecystitis without obstruction (principal); Z20.822 Contact with and (suspected) exposure to COVID-19; Z82.49 Family history of ischemic heart disease and other diseases of the circulatory system; Z83.3 Family history of diabetes mellitus
CPT/HCPCS: 36415; 76705; 80048; 80053; 80076; 81025; 83690; 85025; 87811; 88304; 94010; 96361; 96365; 96372; 96375; 99285; J0694; J1100; J2001; J2175; J2405; J2543; J2550; J2704; J2710; J3010; J7030; J7120; J7799